=== PATIENT | female | born 1980 | race Two or more races ===

== ENCOUNTER 2016-09-26 09:17 | Emergency (ER) | payer OTHER ==
[2016-09-26 09:40] VITALS: BP 124/73
--- NOTE | 2016-09-26 11:15 | UC ---
Neck Pain HPI - HPI Summary HPI Summary: Pt presents w/ Left sided neck pain radiating into shoulder, arm and chest at times. 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 Somewhat better today. Has not taken anything for this yet as she doesn't like to take meds w/o speaking to a doctor first. Reports when the chest sx started, she panicked as she does anytime she has chest discomfort and this triggered her to breath faster and become short of breath. Once she calmed herself down, SOB resolved. Pain in neck, shoulder, arm and chest are worse w/ neck movements and she has had intermittent finger tingling during the worst moments. Denies weakness, numbness. H/o LBP since . Was receiving massage therapy for this. Also reports alot of stress at home recently - not sleeping well, eating well, etc. Denies h/o CVD, does not smoke, drink ETOH nor use drugs, including but not limited to cocaine. - History of Current Complaint Chief Complaint: UCChestPain Stated Complaint: NECK PAIN CHEST PAIN Time Seen by Provider: 09/26/16 10:46 Hx Obtained From: Patient Hx Last Menstrual Period: 09/08/16 - Allergies/Home Medications Allergies/Adverse Reactions: Allergies Allergy/AdvReac Type Severity Reaction Status Date / Time No Known Allergies Allergy Verified 09/26/16 09:40 Home Medications: Home Medications NK [No Home Medications Reported] 09/26/16 [History Confirmed 09/26/16] PMH/Surg Hx/FS Hx/Imm Hx Previously Healthy: Yes Endocrine History Of: Denies: Diabetes, Thyroid Disease Cardiovascular History Of: Denies: Cardiac Disorders, Hypertension, Pacemaker/ICD Respiratory History Of: Denies: COPD, Asthma GI/ History Of: Denies: Ulcer - Surgical History Surgical History: Yes Surgery Procedure, Year, and Place: , CHOLECYSTECTOMY - Family History Known Family History: Positive: Hypertension - mother, brother - no [place] or adverse outcomes Negative: Cardiac Disease, Diabetes - Social History Occupation: Employed Full-time Lives: With Family Alcohol Use: Rare Substance Use Type: None Smoking Status (MU): Never Smoked Tobacco Have You Smoked in the Last Year: No - Immunization History Most Recent Influenza Vaccination: fall 2014 Most Recent Tetanus Shot: 2016 Most Recent Pneumonia Vaccination: never Review Of Systems Constitutional: Negative: Fever, Chills Skin: Positive: Negative Respiratory: Positive: Other - see HPI. Negative: Cough Cardiovascular: Positive: Other - see HPI. Negative: Palpitations Gastrointestinal: Positive: Negative Musculoskeletal: Positive: Other: - see HPI Neurological: Positive: Other - see HPI Psychological: Positive: Anxious All Other Systems Reviewed And Are Negative: Yes Physical Exam Triage Information Reviewed: Yes Appearance: Well-Appearing - concerned, anxious, No Pain Distress, Well- Nourished Vital Signs: Initial Vital Signs Temp 98.5 F 09/26/16 09:23 Pulse 68 09/26/16 09:23 Resp 18 09/26/16 09:23 BP 124/73 09/26/16 09:23 Pulse Ox 98 09/26/16 09:23 Vital Signs Reviewed: Yes Eye Exam: Normal ENT Exam: Normal Dental Exam: Normal Neck: Positive: Other: - Lt trapezius m taught, hyertonic and TTP - palpation reproduced sx; Lt shoulder and Left pectoralis are also TTP and reproduce same pain she was feeling last night; cervical pain worse w/ ipsilateral rotation, better w/ contralateral rotation; worse w/ contralaterl bending. Negative: No Lymphadenopathy Respiratory: Positive: Lungs clear, Normal breath sounds, No respiratory distress, No accessory muscle use. Negative: Chest non-tender Cardiovascular Exam: Normal Cardiovascular: Positive: RRR. Negative: No Murmur Abdominal Exam: Normal Abdomen Description: Positive: Nontender, Soft Bowel Sounds: Positive: Present Musculoskeletal: Positive: Strength Intact, ROM Intact, Other: - muscles abnormal as discussed above Neurological Exam: Normal Psychological Exam: Normal - concerned and anxious but cooperative, collected Skin Exam: Normal Neck Pain Course/Dx - Course Course Of Treatment: Discussed course of sx w/ pt and . ECG NSR w/o ST irregularity. Pt does not have risk factors for CVD other than weight and stress and all pain sx were reproducible w/ PE. Education about muscle strain pathology and treatment as well as stress reduction. Pt voices understanding and agrees w/ plan. Will go to ED if she develops chest pain/SOB. - Differential Dx/Diagnosis Provider Diagnoses: 1) Cervical muscle strain. 2) Stress reaction Discharge - Discharge Plan Condition: Stable Disposition: HOME Patient Education Materials: Cervical Strain (ED), Neck Exercises (GEN) Referrals: Randal Teresa MD [Primary Care Provider] - Additional Instructions: You appear to have muscle strain and tension along the Left side of your neck. This is causing your pain symptoms today. You may try heat followed by stretching (see education for details). You may then ice the area to help with inflammation. You may also take ibuprofen with food and/or use topical analgesics to reduce tightness, pain (ie. biofreeze, bengay, etc) You may benefit from therapeutic massage - call your therapist today to schedule an appointment in the next couple of days. Follow-up with PCP if symptoms persist as you may benefit from physical therapy. *If you develop numbness, weakness, chest pain or shortness of breath, go to the ED
== END 2016-09-26 11:10 | disposition home or self-care (01) ==
LOC: UCEAST 09:17
DX: S16.1XXA Strain of muscle, fascia and tendon at neck level, initial encounter (principal); X58.XXXA Exposure to other specified factors, initial encounter; Y93.9 Activity, unspecified; Y92.9 Unspecified place or not applicable; F43.9 Reaction to severe stress, unspecified
CPT/HCPCS: 93005; 99211; G0463

== ENCOUNTER 2019-01-25 16:03 | Emergency (ER) | payer OTHER ==
[2019-01-25 16:20] VITALS: BP 156/92
--- NOTE | 2019-01-25 17:11 | UC ---
Cardiac HPI - HPI Summary HPI Summary: PATIENT COMPLAINS OF INTERMITTENT LEFT-SIDED CHEST PAIN FOR THE PAST 5 DAYS. SHE DESCRIBES IT A PRESSURE/PULLING SENSATION. EPISODES LAST A FEW MINUTES AND THEN RESOLVE. NOT WORSE WITH EXERTION. STATES THE PAIN SPREADS UP TO BOTH OF HER SHOULDERS AND UP HER NECK. SHE DOES HAVE SOME ASSOCIATED SHORTNESS OF BREATH BUT DENIES ANY NAUSEA OR SWEATS. IS CURRENTLY ASYMPTOMATIC. SHE CALLED HER PCP WHO ADVISED HER TO COME TO THE URGENT CARE OR ER FOR FURTHER EVALUATION. SHE IS CONCERNED ABOUT UNDERLYING CARDIAC CAUSES BUT DOES ADMIT THAT SHE IS UNDER A LOT OF STRESS IN HER LIFE RIGHT NOW. SHE IS A NONSMOKER. NO FAMILY HISTORY OF CARDIAC DISEASE. - History of Current Complaint Chief Complaint: UCChestPain Stated Complaint: CHEST PAIN Time Seen by Provider: 01/25/19 16:04 Hx Obtained From: Patient, Family/Joint Cutter Machine - Hx Last Menstrual Period: 01/25/2019 Onset/Duration: Lasting Days Timing: Intermittent Episodes Lasting: - MINUTES Initial Severity: Moderate Current Severity: None - A Pain Intensity: 0 Chest Pain Location: Left Anterior Character: Pressure/Squeezing Aggravating Factor(s): Nothing Alleviating Factor(s): Spontaneous Resolution Associated Signs & Symptoms: Positive: Chest Pain, Anxiety, Recent Stress, SOB. Negative: Numbness, Tingling, Dizziness, Fever, Nausea/Vomiting, Cough - Allergy/Home Medications Allergies/Adverse Reactions: Allergies Allergy/AdvReac Type Severity Reaction Status Date / Time No Known Allergies Allergy Verified 01/25/19 16:17 PMH/Surg Hx/FS Hx/Imm Hx Neurological History: Migraine - Surgical History Surgical History: Yes Surgery Procedure, Year, and Place: , CHOLECYSTECTOMY - Family History Known Family History: Positive: Hypertension - mother, brother - no [place] or adverse outcomes Negative: Cardiac Disease, Diabetes - Social History Alcohol Use: Rare Substance Use Type: None Smoking Status (MU): Never Smoked Tobacco Have You Smoked in the Last Year: No - Immunization History Most Recent Influenza Vaccination: fall 2014 Most Recent Tetanus Shot: 2016 Most Recent Pneumonia Vaccination: never Review of Systems All Other Systems Reviewed And Are Negative: Yes Constitutional: Positive: Negative Respiratory: Positive: Shortness Of Breath Cardiovascular: Positive: Chest Pain Gastrointestinal: Positive: Negative Physical Exam Triage Information Reviewed: Yes Appearance: Well-Appearing, No Pain Distress, Well-Nourished Vital Signs: Initial Vital Signs Temp 98.5 F 01/25/19 16:17 Pulse 68 01/25/19 16:17 Resp 18 01/25/19 16:17 BP 156/92 01/25/19 16:17 Pulse Ox 98 01/25/19 16:17 Vital Signs Reviewed: Yes Eyes: Positive: Conjunctiva Clear ENT: Positive: Hearing grossly normal Neck: Positive: Supple, Nontender, No Lymphadenopathy Respiratory Exam: Normal Cardiovascular Exam: Normal Abdomen Description: Positive: Soft Musculoskeletal: Positive: No Edema Neurological: Positive: Alert - A Psychological: Positive: Normal Response To Family, Age Appropriate Behavior Skin: Negative: Rashes Diagnostics - EKG Cardiac Rate: NL - 66BPM Cardiac Rhythm: Sinus: Normal Ectopy: None ST Segment: Normal - Assessment/Plan Course Of Treatment: PATIENT ADMITS TO HAVING A LOT OF STRESS IN HER LIFE RIGHT NOW AND STATES THAT HER SYMPTOMS DO WORSEN WHEN SHE IS THINKING ABOUT THESE THINGS HOWEVER SHE IS QUITE CONCERNED ABOUT ANY UNDERLYING CARDIAC ISSUES AND SO WILL BE GOING TO THE [facility] ER DIRECTLY FROM HERE BY PRIVATE CAR. - Clinical Impression Provider Diagnosis: Chest pain Discharge - Sign-Out/Discharge Documenting (check all that apply): Patient Departure All imaging exams completed and their final reports reviewed: No Studies - Discharge Plan Condition: Stable Disposition: HOME-RECOMMEND TO ED Patient Education Materials: Chest Pain (ED) Referrals: Andre Soler MD [Primary Care Provider] - (KEEP YOUR APPT 02/01/19) Additional Instructions: YOUR SYMPTOMS ARE LIKELY RELATED TO STRESS AND ANXIETY HOWEVER GIVEN YOUR CONCERN ABOUT UNDERLYING CARDIAC ISSUES I RECOMMEND YOU GO DIRECTLY TO THE [facility] ER FROM HERE FOR FURTHER EVALUATION. - Billing Disposition and Condition Condition: STABLE Disposition: Home-Recommend to ED
== END 2019-01-25 17:00 | disposition home health service (06) ==
LOC: UCEAST 16:03
DX: R07.9 Chest pain, unspecified (principal)
CPT/HCPCS: 99212; G0463

== ENCOUNTER 2019-01-25 17:29 | Emergency (ER) | payer OTHER ==
[2019-01-25 18:14] LABS: ABS Basophils 0.1 10^3/ul (0-0.2); ABS Eosinophils 0.1 10^3/ul (0-0.6); ABS Lymphocytes 2.1 10^3/ul (1.0-4.8); ABS Monocytes 0.6 10^3/ul (0-0.8); ABS Neutrophils 5.9 10^3/ul (1.5-7.7); Eosinophil % 1.4 %; Hematocrit 41 % (35-47); Hemoglobin 13.9 g/dL (12.0-16.0); Lymphocyte % 24.2 %; Mean Corpuscular HGB Conc 34 g/dL (31-36); Mean Corpuscular Hemoglobin 30 pg (27-31); Mean Corpuscular Volume 88 fL (80-97); Mean Platelet Volume 8.2 fL (7.4-10.4); Platelet Count 241 10^3/uL (150-450); Red Blood Count 4.69 10^6 /uL (3.70-4.87); Red Cell Distribution Width 13 % (10-15); White Blood Count 8.8 10^3/uL (3.5-10.8)
[2019-01-25 18:42] LABS: Albumin 4.2 g/dL (3.2-5.2); Albumin/Globulin Ratio 1.4 (1-3); BUN/Creatinine Ratio 28.1 (8-20); Calcium 9.2 mg/dL (8.6-10.3); EGFR African American 86.4 (>60); EGFR Non-African American 71.4 (>60); Potassium 3.7 mmol/L (3.5-5.0); Total Bilirubin 0.2 mg/dL (0.2-1.0); Total Protein 7.2 g/dL (6.4-8.9)
[2019-01-25 19:00] LABS: Urine Appearance Cloudy; Urine Bacteria Absent (Absent); Urine Bilirubin Negative (Negative); Urine Blood 3+ (Negative); Urine Color Yellow; Urine Glucose Negative (Negative); Urine Ketones Negative (Negative); Urine Nitrite Negative (Negative); Urine Protein Negative (Negative); Urine Red Blood Cell Trace(0-2/hpf) (Absent); Urine Specific Gravity 1.021 (1.010-1.030); Urine Squamous Epithelial Cell Present (Absent); Urine Urobilinogen Negative (Negative); Urine White Blood Cell Absent (Absent)
[2019-01-25] MEDS ORDERED: Aspirin 81 mg CHEW TAB* 81 MG TAB.CHEW PO ONE (19:41)
--- NOTE | 2019-01-25 22:10 | ED ---
HPI Chest Pain - HPI Summary HPI Summary: Patient complains of intermittent left-sided chest pain, lightheadedness, associated SOB 1 week. Patient was sent to communicate by PCP within advise patient to come to the ED for further evaluation. Chest pain described as a pressure, random onset, lasts a few minutes at a time, radiates to bilateral shoulders and neck. Denies symptoms with exertion. Patient states she has had prior episodes of same with anxiety and increased stress levels. Does admit to increased stress recently. Denies fever, cough, sore throat, N/V/D, abdominal pain, change in urine, change in BM. Perc negative. Medical history is none. Denies family history of cardiac disease. Nonsmoker. Denies recreational drug use. Denies use of caffeine, energy drinks. - History of Current Complaint Chief Complaint: EDChestPainROMI Time Seen by Provider: 01/25/19 19:20 Hx Obtained From: Patient Hx Last Menstrual Period: 01/25/2019 Onset/Duration: Started Days Ago Timing: Intermittent, Lasting Minutes Initial Severity: Mild Current Severity: Mild Pain Intensity: 3 Pain Scale Used: 0-10 Numeric Chest Pain Location: Left Anterior Chest Pain Radiates: Yes Chest Pain Radiates To:: Shoulder, Neck Character: Sharp/Stabbing Aggravating Factor(s): Nothing Alleviating Factor(s): Nothing Associated Signs and Symptoms: Positive: Chest Pain, Shortness of Breath - Risk Factors Pulmonary Embolism Risk Factors: Negative - Allergy/Home Medications Allergies/Adverse Reactions: Allergies Allergy/AdvReac Type Severity Reaction Status Date / Time No Known Allergies Allergy Verified 01/25/19 16:17 PMH/Surg Hx/FS Hx/Imm Hx Endocrine/Hematology History: Denies: Hx Diabetes, Hx Thyroid Disease Cardiovascular History: Denies: Hx Hypertension, Hx Pacemaker/ICD Respiratory History: Denies: Hx Asthma, Hx Chronic Obstructive Pulmonary Disease (COPD) GI History: Denies: Hx Ulcer History: Denies: Hx Dialysis Sensory History: Denies: Hx Hearing Aid EENT History: Denies: Hx Deafness Neurological History: Denies: Hx Dementia Psychiatric History: Denies: Hx Panic Disorder - Surgical History Surgery Procedure, Year, and Place: , CHOLECYSTECTOMY - Immunization History Immunizations Up to Date: Yes Infectious Disease History: No Infectious Disease History: Denies: Hx Clostridium Difficile, Hx Hepatitis, Hx Human Immunodeficiency Virus (HIV), Hx of Known/Suspected MRSA, Hx Shingles, Hx Tuberculosis, Traveled Outside the [place] in Last 30 Days - Family History Known Family History: Positive: Hypertension - mother, brother - no [place] or adverse outcomes Negative: Cardiac Disease, Diabetes - Social History Alcohol Use: Rare Substance Use Type: Reports: None Smoking Status (MU): Never Smoked Tobacco Have You Smoked in the Last Year: No Review of Systems Constitutional: Negative Eyes: Negative ENT: Negative Positive: Chest Pain Positive: Shortness Of Breath Gastrointestinal: Negative Genitourinary: Negative Musculoskeletal: Negative Skin: Negative Neurological: Negative Psychological: Normal All Other Systems Reviewed And Are Negative: Yes Physical Exam - Summary Physical Exam Summary: Chest pain nonreproducible. Lung sounds clear to auscultation bilaterally. RRR. Abdomen soft nontender. Triage Information Reviewed: Yes Vital Signs On Initial Exam: Initial Vitals Temp Pulse Resp BP Pulse Ox 98.6 F 67 14 138/74 100 01/25/19 17:44 01/25/19 17:44 01/25/19 17:44 01/25/19 17:44 01/25/19 17:44 Vital Signs Reviewed: Yes Appearance: Positive: Well-Appearing Skin: Positive: Warm Head/Face: Positive: Normal Head/Face Inspection Eyes: Positive: Normal ENT: Positive: Normal ENT inspection Neck: Positive: Supple Respiratory/Lung Sounds: Positive: Clear to Auscultation Cardiovascular: Positive: Normal Abdomen Description: Positive: Nontender Musculoskeletal: Positive: Normal Neurological: Positive: Normal Psychiatric: Positive: Normal AVPU Assessment: Alert - Anna Coma Scale Best Eye Response: 4 - Spontaneous Best Motor Response: 6 - Obeys Commands Best Verbal Response: 5 - Oriented Coma Scale Total: 15 Diagnostics - Vital Signs Vital Signs Temp Pulse Resp BP Pulse Ox 01/25/19 21:01 72 19 99 01/25/19 20:33 60 20 148/98 99 01/25/19 20:02 58 18 160/91 99 01/25/19 20:01 64 18 100 01/25/19 19:32 62 22 136/79 98 01/25/19 19:02 60 141/87 99 01/25/19 17:44 98.6 F 67 14 138/74 100 - Laboratory Lab Results: Lab Results 01/25/19 01/25/19 01/25/19 Range/Units 18:01 18:01 18:01 WBC 8.8 (3.5-10.8) 10^3/uL RBC 4.69 (3.70-4.87) 10^6 /uL Hgb 13.9 (12.0-16.0) g/dL Hct 41 (35-47) % MCV 88 (80-97) fL MCH 30 (27-31) pg MCHC 34 (31-36) g/dL RDW 13 (10-15) % Plt Count 241 (150-450) 10^3/uL MPV 8.2 (7.4-10.4) fL Neut % (Auto) 67.0 % Lymph % (Auto) 24.2 % Peach % (Auto) 6.6 % Eos % (Auto) 1.4 % Baso % (Auto) 0.8 % Absolute Neuts (auto) 5.9 (1.5-7.7) 10^3/ul Absolute Lymphs (auto) 2.1 (1.0-4.8) 10^3/ul Absolute Monos (auto) 0.6 (0-0.8) 10^3/ul Absolute Eos (auto) 0.1 (0-0.6) 10^3/ul Absolute Basos (auto) 0.1 (0-0.2) 10^3/ul Absolute Nucleated RBC 0.0 10^3/ul Nucleated RBC % 0.0 INR (Anticoag Therapy) 1.00 (0.82-1.09) Sodium 140 (135-145) mmol/L Potassium 3.7 (3.5-5.0) mmol/L Chloride 108 (101-111) mmol/L Carbon Dioxide 26 (22-32) mmol/L Anion Gap 6 (2-11) mmol/L BUN 25 H (6-24) mg/dL Creatinine 0.89 (0.51-0.95) mg/dL Est GFR ( Amer) 86.4 (>60) Est GFR (Non-Af Amer) 71.4 (>60) BUN/Creatinine Ratio 28.1 H (8-20) Glucose 101 H (70-100) mg/dL Calcium 9.2 (8.6-10.3) mg/dL Total Bilirubin 0.20 (0.2-1.0) mg/dL AST 15 (13-39) U/L ALT 11 (7-52) U/L Alkaline Phosphatase 89 (34-104) U/L Troponin I 0.00 (<0.04) ng/mL Total Protein 7.2 (6.4-8.9) g/dL Albumin 4.2 (3.2-5.2) g/dL Globulin 3.0 (2-4) g/dL Albumin/Globulin Ratio 1.4 (1-3) Urine Color Urine Appearance Urine pH (5-9) Ur Specific [place] (1.010-1.030) Urine Protein (Negative) Urine Ketones (Negative) Urine Blood (Negative) Urine Nitrate (Negative) Urine Bilirubin (Negative) Urine Urobilinogen (Negative) Ur Leukocyte Esterase (Negative) Urine WBC (Auto) (Absent) Urine RBC (Auto) (Absent) Ur Squamous Epith Cells (Absent) Urine Bacteria (Absent) Urine Glucose (Negative) 01/25/19 01/25/19 Range/Units 18:39 21:17 WBC (3.5-10.8) 10^3/uL RBC (3.70-4.87) 10^6 /uL Hgb (12.0-16.0) g/dL Hct (35-47) % MCV (80-97) fL MCH (27-31) pg MCHC (31-36) g/dL RDW (10-15) % Plt Count (150-450) 10^3/uL MPV (7.4-10.4) fL Neut % (Auto) % Lymph % (Auto) % Peach % (Auto) % Eos % (Auto) % Baso % (Auto) % Absolute Neuts (auto) (1.5-7.7) 10^3/ul Absolute Lymphs (auto) (1.0-4.8) 10^3/ul Absolute Monos (auto) (0-0.8) 10^3/ul Absolute Eos (auto) (0-0.6) 10^3/ul Absolute Basos (auto) (0-0.2) 10^3/ul Absolute Nucleated RBC 10^3/ul Nucleated RBC % INR (Anticoag Therapy) (0.82-1.09) Sodium (135-145) mmol/L Potassium (3.5-5.0) mmol/L Chloride (101-111) mmol/L Carbon Dioxide (22-32) mmol/L Anion Gap (2-11) mmol/L BUN (6-24) mg/dL Creatinine (0.51-0.95) mg/dL Est GFR ( Amer) (>60) Est GFR (Non-Af Amer) (>60) BUN/Creatinine Ratio (8-20) Glucose (70-100) mg/dL Calcium (8.6-10.3) mg/dL Total Bilirubin (0.2-1.0) mg/dL AST (13-39) U/L ALT (7-52) U/L Alkaline Phosphatase (34-104) U/L Troponin I 0.00 (<0.04) ng/mL Total Protein (6.4-8.9) g/dL Albumin (3.2-5.2) g/dL Globulin (2-4) g/dL Albumin/Globulin Ratio (1-3) Urine Color Yellow Urine Appearance Cloudy Urine pH 6.0 (5-9) Ur Specific [place] 1.021 (1.010-1.030) Urine Protein Negative (Negative) Urine Ketones Negative (Negative) Urine Blood 3+ A (Negative) Urine Nitrate Negative (Negative) Urine Bilirubin Negative (Negative) Urine Urobilinogen Negative (Negative) Ur Leukocyte Esterase Negative (Negative) Urine WBC (Auto) Absent (Absent) Urine RBC (Auto) Trace(0-2/hpf) (Absent) Ur Squamous Epith Cells Present A (Absent) Urine Bacteria Absent (Absent) Urine Glucose Negative (Negative) Result Diagrams: 01/25/19 18:01 01/25/19 18:01 Lab Statement: Any lab studies that have been ordered have been reviewed, and results considered in the medical decision making process. Chest Pain Course/Dx - Course Course Of Treatment: Patient complains of intermittent left-sided chest pain, lightheadedness, associated SOB 1 week. Patient was sent to communicate by PCP within advise patient to come to the ED for further evaluation. Chest pain described as a pressure, random onset, lasts a few minutes at a time, radiates to bilateral shoulders and neck. Denies symptoms with exertion. Patient states she has had prior episodes of same with anxiety and increased stress levels. Does admit to increased stress recently. Denies fever, cough, sore throat, N/V/D, abdominal pain, change in urine, change in BM. Perc negative. Medical history is none. Denies family history of cardiac disease. Nonsmoker. Denies recreational drug use. Denies use of caffeine, energy drinks. Vital signs within normal limits. Labs unremarkable. EKG sinus rhythm. Chest x-ray unremarkable. Serial troponins unremarkable. - Diagnoses Provider Diagnoses: Atypical chest pain Discharge - Sign-Out/Discharge Documenting (check all that apply): Patient Departure Patient Received Moderate/Deep Sedation with Procedure: No - Discharge Plan Condition: Stable Disposition: HOME Patient Education Materials: Chest Pain (ED) Referrals: Andre Soler MD [Primary Care Provider] - Additional Instructions: Take ibuprofen 600 mg every 6 hours for 2 days. Follow-up with primary care. Return to the ED for any new or worsening symptoms. - Billing Disposition and Condition Condition: STABLE Disposition: Home
[2019-01-25 22:28] VITALS: BP 156/90
== END 2019-01-25 22:26 | disposition home or self-care (01) ==
LOC: ED 17:29
DX: R07.89 Other chest pain (principal); R06.02 Shortness of breath; R42 Dizziness and giddiness
CPT/HCPCS: 36415; 71046; 80053; 81003; 81015; 84484; 85025; 85610; 93005; 99282; A9270-GY

== ENCOUNTER 2021-02-15 16:18 | Observation (INO) ==
[2021-02-15] MEDS ORDERED: cefTRIAXone 1 gm/50 mL NS BAG 1 GM/50 ML BAG IV ONE (17:20)
[2021-02-15] MEDS ORDERED: NS 0.9% 1000 ml BAG 1,000 ML IV ONE ×2 (17:20→19:20)
[2021-02-15 18:21] LABS: ABS Monocytes 0.7 10^3/ul (0-0.8); ABS Neutrophils 6.9 10^3/ul (1.5-7.7); Eosinophil % 0.2 %; Hematocrit 39 % (35-47); Hemoglobin 13.6 g/dL (12.0-16.0); Lymphocyte % 11.6 %; Mean Corpuscular HGB Conc 35 g/dL (31-36); Mean Corpuscular Hemoglobin 30 pg (27-31); Mean Corpuscular Volume 88 fL (80-97); Mean Platelet Volume 8.1 fL (7.4-10.4); Platelet Count 214 10^3/uL (150-450); Red Cell Distribution Width 13 % (10-15); White Blood Count 8.7 10^3/uL (3.5-10.8)
[2021-02-15 18:36] LABS: ALT 14 U/L (7-52); AST 17 U/L (13-39); Albumin 4.3 g/dL (3.2-5.2); Albumin/Globulin Ratio 1.2 (1-3); Alkaline Phosphatase 96 U/L (35-149); Anion Gap 7 mmol/L (2-11); Blood Urea Nitrogen 18 mg/dL (6-24); C Reactive Protein 64.78 mg/L (<8.01); CO2 Carbon Dioxide 25 mmol/L (22-32); Calcium 9.2 mg/dL (8.6-10.3); Chloride 101 mmol/L (101-111); EGFR African American 71.8 (>60); EGFR Non-African American 59.3 (>60); Globulin 3.5 g/dL (2-4); Glucose 92 mg/dL (70-100); Potassium 3.9 mmol/L (3.5-5.0); Sodium 133 mmol/L (135-145); Total Protein 7.8 g/dL (6.4-8.9)
[2021-02-15] MEDS ORDERED: NS 0.9% 250 ml 250 ML IV ONE (20:00)
[2021-02-15 20:43] LABS: Urine Appearance Clear; Urine Bilirubin Negative (Negative); Urine Blood 1+ (Negative); Urine Color Amber; Urine Glucose Negative (Negative); Urine Ketones Trace (Negative); Urine Nitrite Positive (Negative); Urine Protein Negative (Negative); Urine Specific Gravity 1.006 (1.002-1.030); Urine Urobilinogen Negative (Negative)
[2021-02-15 20:48] LABS: Urine Bacteria 1+ (Absent); Urine Red Blood Cell 1+(3-5/hpf) (Absent); Urine White Blood Cell 2+(11-20/hpf) (Absent)
[2021-02-15 21:23] LABS: HCG Pregnancy < 0.60 mIU/mL
[2021-02-16 07:31] LABS: ABS Eosinophils 0.1 10^3/ul (0-0.6); ABS Lymphocytes 1.4 10^3/ul (1.0-4.8); ABS Monocytes 0.8 10^3/ul (0-0.8); Eosinophil % 0.9 %; Hematocrit 37 % (35-47); Hemoglobin 12.7 g/dL (12.0-16.0); Lymphocyte % 21.9 %; Mean Corpuscular HGB Conc 34 g/dL (31-36); Mean Corpuscular Hemoglobin 30 pg (27-31); Mean Corpuscular Volume 89 fL (80-97); Mean Platelet Volume 8.4 fL (7.4-10.4); Platelet Count 190 10^3/uL (150-450); Red Blood Count 4.18 10^6 /uL (3.70-4.87); Red Cell Distribution Width 13 % (10-15); White Blood Count 6.3 10^3/uL (3.5-10.8)
[2021-02-16 07:46] LABS: Calcium 7.9 mg/dL (8.6-10.3); EGFR African American 96.1 (>60); EGFR Non-African American 79.4 (>60); Potassium 3.7 mmol/L (3.5-5.0)
[2021-02-16] MEDS ORDERED: Polyethylene Glycol 3350 17 GM PACKET PO PRN (10:10)
[2021-02-16] MEDS ORDERED: Senna TAB 8.6 mg TAB PO PRN (10:10)
[2021-02-16 11:37] VITALS: BP 125/83
[2021-02-16] MEDS ORDERED: cefTRIAXone 1 gm/50 mL NS BAG 1 GM/50 ML BAG IVPB SCH ×2 (14:00→18:00)
[2021-02-16] MEDS ORDERED: Magnesium Hydroxide LIQ 30 ML UDC PO SCH (21:00)
== END 2021-02-16 14:43 | disposition home or self-care (01) ==
LOC: MEDTELE 16:18 → ED 16:18 → MEDTELE 22:38
PROVIDERS: ADMIT Internal Medicine; ATTEND Hospitalist